=== PATIENT | male | born 1995 ===

== ENCOUNTER 2017-12-26 17:44 | Emergency (ER) | payer BC ==
[2017-12-26 18:20] VITALS: BP 122/41
--- NOTE | 2017-12-26 19:13 | UC ---
Throat Pain/Nasal Juve HPI - HPI Summary HPI Summary: C/O sore throat on the left side x 2 days, worsening with fatigue. - History of Current Complaint Chief Complaint: UCGeneralIllness Stated Complaint: SORE THROAT Time Seen by Provider: 12/26/17 19:06 Hx Obtained From: Patient Onset/Duration: Sudden Onset, Lasting Days - 2, Worse Since - today Severity: Moderate Pain Intensity: 5 Cough: None Associated Signs & Symptoms: Positive: Dysphagia. Negative: Drooling, Hoarseness, Sinus Discomfort, Nasal Discharge, Fever Related History: Seasonal Allergies - Allergies/Home Medications Allergies/Adverse Reactions: Allergies Allergy/AdvReac Type Severity Reaction Status Date / Time No Known Allergies Allergy Verified 12/26/17 18:20 PMH/Surg Hx/FS Hx/Imm Hx Previously Healthy: Yes - Surgical History Surgical History: None - Family History Known Family History: Positive: Cardiac Disease, Hypertension, Diabetes - Social History Occupation: Employed Part-time Lives: Dormitory/Roommates Alcohol Use: Occasionally Substance Use Type: Marijuana Smoking Status (MU): Never Smoked Tobacco Review of Systems Constitutional: Chills ENT: Sore Throat Is Patient Immunocompromised?: No All Other Systems Reviewed And Are Negative: Yes Physical Exam Triage Information Reviewed: Yes Appearance: Well-Appearing, No Pain Distress, Well-Nourished Vital Signs: Initial Vital Signs Temp 98.4 F 12/26/17 18:14 Pulse 64 12/26/17 18:14 Resp 16 12/26/17 18:14 BP 122/41 12/26/17 18:14 Pulse Ox 100 12/26/17 18:14 Vital Signs Reviewed: Yes Eyes: Positive: Conjunctiva Clear ENT: Positive: Pharyngeal erythema Neck exam: Normal Respiratory Exam: Normal Cardiovascular Exam: Normal Abdominal Exam: Normal Bowel Sounds: Positive: Present Musculoskeletal Exam: Normal Neurological Exam: Normal Psychological Exam: Normal Skin Exam: Normal Throat Pain/Nasal Course/Dx - Differential Dx/Diagnosis Differential Diagnosis/HQI/PQRI: Mononucleosis, Pharyngitis, Tonsillitis Provider Diagnoses: strep pharyngitis Discharge - Sign-Out/Discharge Documenting (check all that apply): Discharge/Admit/Transfer - Discharge Plan Condition: Stable Disposition: HOME Prescriptions: Amoxicillin PO (*) [Amoxicillin 500 MG CAP*] 500 mg PO TID #30 cap Patient Education Materials: Strep Throat (ED), Amoxicillin (By mouth) Referrals: Non Staff,Doctor [Primary Care Provider] - Additional Instructions: Change or sterilize your toothbrush after 4 or 5 days on the antibiotics. If you are not better in 48 hours then it is not strep. - Billing Disposition and Condition Condition: STABLE Disposition: Home
[2017-12-26] MEDS ORDERED: Amoxicillin PO (*) 500 MG CAP PO ONE (19:22)
== END 2017-12-26 19:47 | disposition home or self-care (01) ==
LOC: UCCORT 17:44
DX: J02.0 Streptococcal pharyngitis (principal)
CPT/HCPCS: 87651; 99202; A9270-GY; G0463